=== PATIENT | male | born 1995 | race Caucasian/White ===

== ENCOUNTER 2018-04-07 10:38 | Emergency (ER) | payer SELFPAY ==
[~2018-04-07] VITALS: Ht 175.3 cm; Wt 63.0 kg
[2018-04-07 10:43] VITALS: BP 118/74
[2018-04-07] MEDS ORDERED: LIDOCAINE-MPF 1%, 2ML ONE (11:01)
[2018-04-07] MEDS ORDERED: DIPH,PERTUSS(ACELL),TET VAC/PF 0.5 ML IM-VACC ONE ×2 (11:02→11:30)
[2018-04-07] MEDS ORDERED: LIDOCAINE-MPF 1%, 5ML INFIL ONE (11:30)
== END 2018-04-07 12:33 | disposition home or self-care (01) ==
LOC: ED 12:00
DX: S61.012A Laceration without foreign body of left thumb without damage to nail, initial encounter (principal); F17.210 Nicotine dependence, cigarettes, uncomplicated; W26.0XXA Contact with knife, initial encounter; Y93.89 Activity, other specified; Y92.69 Other specified industrial and construction area as the place of occurrence of the external cause; Y99.8 Other external cause status
CPT/HCPCS: 12001; 90471; 90715